=== PATIENT | female | born 1970 | race Caucasian/White ===

== ENCOUNTER 2022-06-09 16:43 | Emergency (ER) | payer MEDICAID ==
[~2022-06-09] VITALS: Ht 154.9 cm; Wt 220.0 kg
[2022-06-09] MEDS ORDERED: ACETAMINOPHEN 325 MG TAB PO ONE (19:15)
[2022-06-09] MEDS ORDERED: ACET-1158 PO (19:52)
[2022-06-09] MEDS ORDERED: CYCL-837 PO (19:52)
[2022-06-09 21:13] VITALS: BP 171/76
== END 2022-06-09 21:21 | disposition home or self-care (01) ==
LOC: ER 16:46
DX: S29.012A Strain of muscle and tendon of back wall of thorax, initial encounter (principal); S39.012A Strain of muscle, fascia and tendon of lower back, initial encounter; S16.1XXA Strain of muscle, fascia and tendon at neck level, initial encounter; S80.02XA Contusion of left knee, initial encounter; S80.01XA Contusion of right knee, initial encounter; J45.909 Unspecified asthma, uncomplicated; E11.8 Type 2 diabetes mellitus with unspecified complications; I10 Essential (primary) hypertension; Z98.890 Other specified postprocedural states; V43.52XA Car driver injured in collision with other type car in traffic accident, initial encounter; Y93.89 Activity, other specified; Y92.410 Unspecified street and highway as the place of occurrence of the external cause; Y99.8 Other external cause status
CPT/HCPCS: 72070; 72100; 73562; 73590